=== PATIENT | female | born 1970 | race African-American/Black ===

== ENCOUNTER 2018-12-11 09:50 | Emergency (ER) | payer MEDICARE, OTHER ==
[~2018-12-11] VITALS: Ht 157.5 cm; Wt 89.0 kg
[2018-12-11] MEDS ORDERED: ONDANSETRON HCL 4MG/2ML INJ IV STA (10:18)
[2018-12-11] MEDS ORDERED: SODIUM CHLORIDE 0.9% 1,000 ML IV ONE (10:18)
[2018-12-11] MEDS ORDERED: KETOROLAC 30MG/ML VIAL IV STA (10:18)
[2018-12-11 10:48] LABS: CLARITY URINE TURBID (CLEAR); COLOR URINE DARK YELLOW (YELLOW); KETONES URINE TRACE (NEGATIVE); LEUKOCYTE ESTERASE URINE TRACE (NEGATIVE); NITRITE URINE NEGATIVE (NEGATIVE); OCCULT BLOOD URINE 3+ (NEGATIVE); PH URINE 5.5 (4.5-8.0); PROTEIN URINE 2+ (NEGATIVE); SPECIFIC GRAVITY URINE 1.035 (1.005-1.030)
[2018-12-11 10:54] LABS: BASOPHILS % 1.3 % (0.0-2.0); CHLORIDE 106 mEq/L (98-107); EOSINOPHILS % 8.2 % (0.0-5.0); HEMATOCRIT. 41.4 % (36.0-48.0); HEMOGLOBIN. 13.8 g/dL (12.0-16.0); LYMPHOCYTES % 24.7 % (20.0-50.0); MEAN CORPUSCULAR HEMOGLOBIN 31.2 pg (28.0-32.0); MEAN CORPUSCULAR VOLUME 93.7 fL (81.0-99.0); MEAN PLATELET VOLUME 7.7 fl (7.4-10.4); MONOCYTES % 8.9 % (2.0-8.0); NEUTROPHILS % 56.9 % (40.0-76.0); PLATELET 384 x1000/uL (130-400); RED BLOOD CELL COUNT 4.42 mill/uL (4.2-5.4); RED CELL DISTRIBUTION WIDTH 14.2 % (11.6-14.6)
[2018-12-11] MEDS ORDERED: MORPHINE SULFATE 4 MG/ML CPJ (NOT FOR IM USE) IV ONE (13:00)
[2018-12-11 13:45] VITALS: BP 131/79
== END 2018-12-11 15:30 | disposition home or self-care (01) ==
LOC: ER 11:15
DX: N21.1 Calculus in urethra (principal); R10.9 Unspecified abdominal pain; E11.9 Type 2 diabetes mellitus without complications; I10 Essential (primary) hypertension; F17.200 Nicotine dependence, unspecified, uncomplicated; Z90.710 Acquired absence of both cervix and uterus
CPT/HCPCS: 36415; 74176; 80053; 81003; 83690; 85025; 85610; 96374; 96375; 99284; J1885; J2405; J7030

== ENCOUNTER 2019-02-03 16:51 | Emergency (ER) | payer MEDICARE, OTHER ==
[~2019-02-03] VITALS: Ht 157.5 cm; Wt 92.0 kg
[2019-02-03 17:11] VITALS: BP 157/101
== END 2019-02-04 02:00 | disposition left against medical advice (07) ==
LOC: ER 16:51
DX: M79.602 Pain in left arm (principal); Z53.21 Procedure and treatment not carried out due to patient leaving prior to being seen by health care provider

== ENCOUNTER 2019-05-03 08:25 | Emergency (ER) | payer OTHER, MEDICARE ==
[~2019-05-03] VITALS: Ht 157.5 cm; Wt 97.0 kg
[2019-05-03 08:34] VITALS: BP 125/81
== END 2019-05-03 09:14 | disposition home or self-care (01) ==
LOC: ER 08:25
DX: G89.29 Other chronic pain (principal); M79.10 Myalgia, unspecified site; E11.9 Type 2 diabetes mellitus without complications; E78.00 Pure hypercholesterolemia, unspecified; M19.90 Unspecified osteoarthritis, unspecified site; F17.200 Nicotine dependence, unspecified, uncomplicated
CPT/HCPCS: 99283

== ENCOUNTER 2022-01-19 17:30 | Emergency (ER) | payer OTHER, MEDICAID ==
[~2022-01-19] VITALS: Ht 157.5 cm; Wt 103.0 kg
[2022-01-19 17:53] VITALS: BP 147/75
== END 2022-01-19 18:20 | disposition left against medical advice (07) ==
LOC: ER 17:30
DX: Z53.21 Procedure and treatment not carried out due to patient leaving prior to being seen by health care provider (principal)

== ENCOUNTER 2022-01-25 10:35 | Emergency (ER) | payer OTHER, MEDICAID ==
[~2022-01-25] VITALS: Ht 160 cm; Wt 107.0 kg
[2022-01-25 12:33] VITALS: BP 147/55
== END 2022-01-25 12:34 | disposition home or self-care (01) ==
LOC: ER 10:56
DX: R59.0 Localized enlarged lymph nodes (principal); E11.9 Type 2 diabetes mellitus without complications; I10 Essential (primary) hypertension; I99.8 Other disorder of circulatory system; E78.00 Pure hypercholesterolemia, unspecified
CPT/HCPCS: 99281

== ENCOUNTER 2024-11-01 10:15 | Emergency (ER) | payer MEDICARE, OTHER ==
[~2024-11-01] VITALS: Ht 160 cm; Wt 105.0 kg
[2024-11-01 10:40] VITALS: BP 133/75; PULSE 82; RESP 18; TEMP 36.9; O2SAT 100
== END 2024-11-01 15:29 | disposition left against medical advice (07) ==
LOC: ER 10:15
DX: M79.606 Pain in leg, unspecified (principal); Z53.21 Procedure and treatment not carried out due to patient leaving prior to being seen by health care provider

== ENCOUNTER 2024-11-11 15:54 | Emergency (ER) | payer MEDICARE, MEDICAID ==
[~2024-11-11] VITALS: Ht 160 cm; Wt 108.8 kg
[2024-11-11 16:05] VITALS: TEMP 36.7; O2SAT 99
[2024-11-11 17:37] VITALS: BP 122/76; PULSE 98; RESP 18
[2024-11-11] MEDS: IBUPROFEN 400MG TABLET PO ONE (17:37)
[2024-11-11] MEDS ORDERED: IBUP-2028 MT (18:44)
== END 2024-11-11 18:57 | disposition home or self-care (01) ==
LOC: ER 15:54
DX: M79.672 Pain in left foot (principal); M79.89 Other specified soft tissue disorders; E78.00 Pure hypercholesterolemia, unspecified; E11.59 Type 2 diabetes mellitus with other circulatory complications; Z90.710 Acquired absence of both cervix and uterus
CPT/HCPCS: 73630; 93970; 99284

== ENCOUNTER 2025-05-15 12:43 | Emergency (ER) | payer MEDICAID, MEDICARE ==
[~2025-05-15] VITALS: Ht 160 cm; Wt 99.8 kg
[~2025-05-15 12:43] MED LIST: IBUP-2028 MT
[2025-05-15 12:44] VITALS: BP 126/84; TEMP 36.8; O2SAT 97
[2025-05-15 12:45] VITALS: PULSE 93; RESP 16; O2SAT 99
== END 2025-05-15 12:59 | disposition home or self-care (01) ==
LOC: ER 12:43
DX: B34.9 Viral infection, unspecified (principal); E11.59 Type 2 diabetes mellitus with other circulatory complications; E78.00 Pure hypercholesterolemia, unspecified; I10 Essential (primary) hypertension; Z55.6 Problems related to health literacy; Z90.49 Acquired absence of other specified parts of digestive tract; Z90.710 Acquired absence of both cervix and uterus
CPT/HCPCS: 93005; 99283

== ENCOUNTER 2025-07-10 12:25 | Emergency (ER) | payer MEDICARE, MEDICAID ==
[~2025-07-10] VITALS: Ht 160 cm; Wt 91.0 kg
[2025-07-10 12:35] VITALS: O2SAT 99
[2025-07-10 12:41] VITALS: BP 138/79; PULSE 93; RESP 18; TEMP 36.6; O2SAT 99
== END 2025-07-10 16:30 | disposition left against medical advice (07) ==
LOC: ER 12:25
DX: M79.89 Other specified soft tissue disorders (principal)
CPT/HCPCS: 99281